=== PATIENT | male | born 1945 | race Caucasian/White ===

== ENCOUNTER 2020-05-23 14:37 | Outpatient (CLI) | payer OTHER, SELFPAY ==
--- NOTE | 2020-05-23 14:42 | ECG_ITS ---
Measurements Intervals [place] Rate: 70 P: 48 ME: 158 QRS: 21 QRSD: 90 T: 49 QT: 401 QTc: 435 Interpretive Statements SINUS RHYTHM NORMAL ECG Electronically Signed On 05-23-2020 15:10:17 CDT by Noe Blevins D.O.
[2020-05-23 14:54] LABS: Basophils Absolute Auto 0.04 K/mm3 (0.00-0.10); Basophils Percent Auto 0.5 % (0.0-1.0); Eosinophils Absolute Auto 0.25 K/mm3 (0.02-0.50); Eosinophils Percent Auto 3.4 % (1.0-6.0); Hematocrit 44.5 % (37.0-46.0); Hemoglobin 15.1 g/dL (12.4-15.3); Immature Granulocyte Absolute 0.02 K/mm3 (0.00-0.00); Immature Granulocyte Percent A 0.3 % (0.0-0.0); Lymphocytes Absolute Auto 3.13 K/mm3 (1.10-4.50); Lymphocytes Percent Auto 42.1 % (18.0-42.0); Mean Corpuscular HGB Conc 33.9 g/dL (32.0-36.0); Mean Corpuscular Hemoglobin 31.5 pg (27.0-31.0); Mean Corpuscular Volume 92.7 fL (78.0-102.0); Mean Platelet Volume 8.8 fl (8.7-11.0); Monocytes Absolute Auto 0.47 K/mm3 (0.10-0.90); Monocytes Percent Auto 6.3 % (2.0-11.0); Neutrophils Absolute Auto 3.5 K/mm3 (1.7-7.2); Neutrophils Percent Auto 47.4 % (50.0-70.0); Platelet Count Result 214 K/mm3 (150-420); Red Cell Distribution Width 12.7 % (11.6-14.4); White Blood Count 7.4 K/mm3 (4.8-10.8)
[2020-05-23 15:46] LABS: Alanine Aminotransferase 24 U/L (16-63); Albumin Level 3.5 g/dL (3.4-5.0); Alkaline Phosphatase 98 U/L (46-116); Anion Gap 11.2 mmol/L (7-16); Aspartate Amino Transferase 21 U/L (15-37); Bilirubin,Total 0.2 mg/dL (0.00-1.00); Blood Urea Nitrogen 13 mg/dL (7-18); Calcium 8.9 mg/dL (8.5-10.1); Carbon Dioxide 29 mmol/L (21-32); Chloride 108 mmol/L (98-108); Estimated Glomerular Filt Rate > 60; Glucose 90 mg/dL (70-99); Osmolality Calculated 298 mOsm/kg (285-295); Potassium 4.2 mmol/L (3.5-5.1); Sodium 144 mmol/L (136-145); Total Protein 6.5 g/dL (6.4-8.2)
== END 2020-05-23 14:38 | disposition home or self-care (01) ==
PROVIDERS: PCP Nurse Practitioner Family; Visit Provider Nurse Practitioner Family
DX: Z01.818 Encounter for other preprocedural examination (principal)
CPT/HCPCS: 36415; 80053; 85025; 93005

== ENCOUNTER 2024-04-16 15:21 | Emergency (ER) | payer OTHER, SELFPAY ==
[2024-04-16 15:21] VITALS: BP 172/80; PULSE 88; RESP 18; TEMP 36.4; O2SAT 99
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
[2024-04-16] MEDS: TETANUS,DIPHTHERIA,AC PERTUSSIS ADULT 0.5 ML (ADACEL) IM (15:42)
[2024-04-16] MEDS: cefTRIAXone 1 GM, LIDOCAINE HCL 1% LOCAL INJ 2.1 ML IM (15:43)
[2024-04-16] MEDS: SILVER SULFADIAZINE 1% CR 50 GM JAR (*BKC) 1 APPLIC TOPICAL (15:43)
== END 2024-04-16 16:00 | disposition home or self-care (01) ==
LOC: CHSED 15:52
PROVIDERS: Emergency Provider Emergency Medicine
DX: T24.202A Burn of second degree of unspecified site of left lower limb, except ankle and foot, initial encounter (principal); X08.8XXA Exposure to other specified smoke, fire and flames, initial encounter; F17.290 Nicotine dependence, other tobacco product, uncomplicated; Z23 Encounter for immunization
CPT/HCPCS: 90471; 90715; 96372; 99283; A9270; J0696

== ENCOUNTER 2025-07-13 16:29 | Emergency (ER) | payer OTHER, SELFPAY ==
[2025-07-13 16:29] VITALS: BP 122/68; PULSE 90; RESP 20; TEMP 36.3; O2SAT 100
--- NOTE | 2025-07-13 17:30 | PC.NURSE ---
Pt back in room from personal hygiene.
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
[2025-07-13 17:40] VITALS: BP 119/68; PULSE 88; RESP 18; O2SAT 100
== END 2025-07-13 17:45 | disposition home or self-care (01) ==
LOC: CHSED 17:43
PROVIDERS: Emergency Provider Emergency Medicine; PCP Internal Medicine
DX: B37.2 Candidiasis of skin and nail (principal); F17.210 Nicotine dependence, cigarettes, uncomplicated; Z59.00 Homelessness unspecified
CPT/HCPCS: 99283